=== PATIENT | male | born 2000 | race African-American/Black ===

== ENCOUNTER 2023-10-13 08:55 | Emergency (ER) | payer OTHER ==
[~2023-10-13] VITALS: Ht 188 cm; Wt 113.8 kg
[2023-10-13] MEDS: ACETAMINOPHEN *IV* 1,000 MG in IV 1 EA IV ONE (11:06)
[2023-10-13] MEDS: methocarbamoL 500 MG TAB PO ONE (11:07)
[2023-10-13 11:12] LABS: BASO # 0.1 10^3/uL (0.0-0.2); BASO % 0.6 % (0.0-1.0); EOS # 0.1 10^3/uL (0.0-0.5); EOS % 1.5 % (0.0-3.0); HEMATOCRIT 41.5 % (42.0-52.0); HEMOGLOBIN 13.8 g/dl (13.5-17.5); LYMPH # 2.7 10^3/uL (1.5-5.0); LYMPH % 32.3 % (24.0-44.0); MEAN CORPUSCULAR HGB CONC 33.3 g/dl (32.0-36.5); MEAN CORPUSCULAR VOLUME 87.2 fl (80.0-96.0); MONO # 0.9 10^3/uL (0.0-0.8); MONO % 10.3 % (2.0-8.0); NEUTROPHILS # 4.7 10^3/uL (1.5-8.5); NEUTROPHILS % 54.9 % (36.0-66.0); PLATELET COUNT, AUTOMATED 361 10^3/uL (150-450); RED BLOOD COUNT 4.76 10^6/uL (4.30-6.10); WHITE BLOOD COUNT 8.5 10^3/uL (4.0-10.0)
[2023-10-13 11:45] LABS: BLOOD UREA NITROGEN 11 MG/DL (9-23); CARBON DIOXIDE LEVEL 28 MMOL/L (20-31); CHLORIDE LEVEL 108 MMOL/L (98-107); CREATININE FOR GFR 1.26 MG/DL (0.70-1.30); GLOMERULAR FILTRATION RATE > 60.0 (>60); GLUCOSE, FASTING 88 MG/DL (60-100); POTASSIUM SERUM 4.5 MMOL/L (3.5-5.1); SODIUM LEVEL 141 MMOL/L (136-145)
[2023-10-13 11:46] LABS: FREE T4 0.77 NG/DL (0.89-1.76); THYROID STIMULATING HORMONE 1.799 uIU/ML (0.55-4.78)
[2023-10-13 11:51] LABS: CPK CREATINE PHOSPHOKINASE 506 U/L (46-171); MB/CK RELATIVE INDEX 0.39 (< OR =4)
[2023-10-13] MEDS ORDERED: ISOVUE-370 76% 100ML VIAL As Ordered ONE (12:03)
[2023-10-13 14:16] LABS: CK-MB VALUE MASS 2.2 NG/ML (<3.6)
[2023-10-13 14:19] LABS: MB/CK RELATIVE INDEX 0.49 (< OR =4)
[2023-10-13 14:41] VITALS: BP 112/56; TEMP 97.1; O2SAT 97
[2023-10-13] MEDS ORDERED: HOME MED LIST COMPLETE! XX SCH (15:05)
== END 2023-10-13 15:25 | disposition home or self-care (01) ==
LOC: M ED 08:55
DX: R07.89 Other chest pain (principal); I51.7 Cardiomegaly; J90 Pleural effusion, not elsewhere classified
CPT/HCPCS: 71046; 71275; 80048; 82550; 82553; 84439; 84443; 84484; 85025; 85379; 93005; 96365; 99284; J0131; Q9967

== ENCOUNTER → 2024-10-17 | Outpatient (CLI) | payer OTHER | LOC: M RAD 08:22 | PROVIDERS: ATTEND Physician Assistant | DX: R91.8 Other nonspecific abnormal finding of lung field (principal) ==

== ENCOUNTER → 2024-11-27 | Outpatient (CLI) | payer OTHER, SELFPAY ==
[~2024-11-27] MED LIST: METHACHOLINE KIT (6 VIAL.NEB PREMIX) INH ONE
== END ==
LOC: M CARPUL 08:18
PROVIDERS: ATTEND Physician Assistant
DX: R06.00 Dyspnea, unspecified (principal)
CPT/HCPCS: 94070; 95070; J7674